=== PATIENT | female | born 1995 | race Caucasian/White ===

== ENCOUNTER 2021-12-04 11:00 | Emergency (ER) | payer OTHER, MEDICAID, SELFPAY ==
[2021-12-04 11:12] VITALS: BP 116/70; PULSE 100; RESP 12; TEMP 36.9; O2SAT 100
[2021-12-04 11:16] VITALS: BP 116/70; PULSE 100; RESP 12; TEMP 36.9; O2SAT 100
--- NOTE | 2021-12-04 11:24 | ED.URI ---
HPI - URI/Sore Throat General Chief Complaint: Upper Respiratory Infection Stated Complaint: fatigue,cough,runny nose,fever Time Seen by Provider: 12/04/21 11:15 Source: patient Mode of arrival: ambulatory Limitations: no limitations History of Present Illness HPI Narrative: Patient presents today complaining of 5-day history of productive cough with chest tightness fatigue, rhinorrhea, fever up to 100.2, and decreased appetite. Denies shortness of breath or wheezing. During this time she has done 2 home COVID-19 test that were both negative. She has been taking ibuprofen and cough drops with mild relief. She has history of asthma, but has not used an inhaler in a couple of years and does not have one at home. Related Data Home Medications Medication Instructions Recorded Confirmed June tab-cap PO DAILY 12/04/21 12/04/21 duloxetine 20 mg capsule,delayed 20 mg PO BID 12/04/21 12/04/21 release (Cymbalta) Allergies Allergy/AdvReac Type Severity Reaction Status Date / Time No Known Allergies Allergy Unverified 12/04/21 11:12 Review of Systems Review of Systems: CONSTITUTIONAL: Denies body aches, chills, or sweats.+ Fever, fatigue EYES: Denies visual changes, redness, or discharge. ENT: Denies congestion, sore throat, or otalgia.+ Rhinorrhea CARDIOVASCULAR: Denies chest pain, palpitations, or edema. RESPIRATORY: Denies dyspnea.+ Cough GASTROINTESTINAL: Denies abdominal pain, nausea, vomiting, or diarrhea.+ Decreased appetite GENITOURINARY: Denies dysuria or hematuria. SKIN: Denies rash, itching, or wounds. MUSCULOSKELETAL: Denies back pain, joint pain, or myalgia. NEUROLOGIC: Denies headache, numbness, tingling, or weakness. PSYCH: Denies depression or anxiety. [facility] Past Medical History Medical History (Updated 12/04/21 @ 11:30 by Juany Wakefield, FERMENTER HELPER, ) Asthma Comments At time of signature, I have reviewed and agree with nursing past medical, surgical, social and family history unless otherwise noted. Please see nursing chart for further information. There is no relevant family history pertinent to the presenting complaint Exam Narrative: GENERAL: Mildly ill-appearing, well-nourished, and in no acute distress. HEAD: Normocephalic, atraumatic. EYES: EOMI. No redness or drainage. Conjunctivae normal. ENT: Mucous membranes pink and moist. Nares mildly congested. No rhinorrhea. TMs normal bilaterally. Throat normal. Uvula midline. NECK: Normal AROM. Supple. No lymphadenopathy. CHEST: No respiratory distress. Clear to auscultation. HEART: Regular rate and rhythm. No murmur appreciated. Normal peripheral pulses. EXTREMITIES: Normal range of motion. No edema. SKIN: Warm, dry, no rash. Capillary refill normal. Normal skin turgor. NEURO: No focal deficits. Alert and oriented x3. Gait steady. PSYCH: Normal affect. No signs of depression or anxiety. Course Course Level of Care: Express Care Visit Vital Signs Vital signs: Vital Signs Temperature 98.5 F 12/04/21 11:12 Pulse Rate 100 12/04/21 11:12 Respiratory Rate 12 12/04/21 11:12 Blood Pressure 116/70 12/04/21 11:12 Pulse Oximetry 100 12/04/21 11:12 Oxygen Delivery Room Air 12/04/21 11:12 Temperature 98.5 F 12/04/21 11:16 Pulse Rate 100 12/04/21 11:16 Respiratory Rate 12 12/04/21 11:16 Blood Pressure 116/70 12/04/21 11:16 Pulse Oximetry 100 12/04/21 11:16 Oxygen Delivery Room Air 12/04/21 11:16 Reviewed MDM - URI/Sore Throat Differential Diagnosis Differential diagnosis: Likely upper respiratory infection, sinusitis, viral infection and bronchitis Critical Care Time Critical Care Time Critical Care Time: No Discharge Plan Discharge Clinical Impression: Bronchitis Upper respiratory infection Qualifiers: URI type: unspecified URI Qualified Code(s): J06.9 - Acute upper respiratory infection, unspecified Patient Disposition: Home, Self-Care Condition: Stable Instruction
== END 2021-12-04 11:35 | disposition home or self-care (01) ==
PROVIDERS: Emergency Provider Nurse Practitioner
DX: J40 Bronchitis, not specified as acute or chronic (principal); J06.9 Acute upper respiratory infection, unspecified; J45.909 Unspecified asthma, uncomplicated

== ENCOUNTER 2022-09-13 10:50 | Emergency (ER) | payer OTHER, SELFPAY ==
[2022-09-13 11:10] VITALS: BP 110/83; PULSE 108; RESP 16; TEMP 36.5; O2SAT 98
--- NOTE | 2022-09-13 11:15 | ED.URI ---
HPI - URI/Sore Throat General Chief Complaint: Upper Respiratory Infection Stated Complaint: swollen lymph nodes,congestion,headache,fatigue Time Seen by Provider: 09/13/22 11:15 Source: patient and RN notes reviewed Mode of arrival: ambulatory Limitations: no limitations History of Present Illness HPI Narrative: 27-year-old female presents for complaint of fatigue, sinus pressure congestion, drainage, cough, and occasional wheezing for almost 1 week. Endorses history of asthma and has been of an albuterol inhaler for some time, stating she does not have primary care provider. Endorses cough is productive of green/brown sputum. She denies nausea, vomiting, diarrhea, fevers or chills. She denies known sick contacts. She is taking Mucinex and Sudafed for symptoms. Took negative COVID test home yesterday. MD elicited complaint: cough Related Data Home Medications Medication Instructions Recorded Confirmed duloxetine 20 mg capsule,delayed 20 mg PO BID 12/04/21 09/13/22 release (Cymbalta) norethindrone 1 mg-ethinyl 1 tablet PO DAILY 09/13/22 09/13/22 estradiol 20 mcg (21)-iron 75 mg (7) tablet (06/01 (28)) Allergies Allergy/AdvReac Type Severity Reaction Status Date / Time No Known Allergies Allergy Verified 09/13/22 11:08 Review of Systems Review of Systems: CONSTITUTIONAL: Endorses malaise, denies chills, sweats, fever EYES: Denies visual changes, redness, or discharge ENT: Reports rhinorrhea, congestion, denies sinus pain, otalgia, sore throat CARDIOVASCULAR: Denies chest pain, palpitations, edema RESPIRATORY: Reports cough, post nasal drainage. Denies dyspnea GASTROINTESTINAL: Denies abdominal pain, nausea, vomiting, diarrhea SKIN: Denies rash or itching MUSCULOSKELETAL: denies myalgia NEUROLOGIC: Denies headache PMFSH Past Medical History Medical History Asthma Exam Narrative: GENERAL: mildly Ill-appearing, nontoxic EYES: PERRLA, conjunctivae clear ENT: Mucous membranes moist. TMs pearly sutton with dull light reflex bilaterally; no tragal tenderness. Oropharynx without lesions or exudate, no drooling, no hoarseness, no trismus, uvula midline. CHEST: Clear to auscultation, breath sounds equal. No wheezing, rhonchi, rales, or stridor. No respiratory distress, speaks in full sentences. HEART: Regular rate and rhythm. No murmur heard. SKIN: Warm, dry, no rash. NEURO: Alert and oriented x3. PSYCH: Normal mood and affect Course Course Emergency Course: Patient is aware of diagnosis, understands and agrees to treatment plan. Anticipatory guidance given. Patient agrees to follow-up as directed and is aware of reasons to seek care at the emergency department. Portions of this record may have been created with voice recognition software Level of Care: Express Care Visit Vital Signs Vital signs: Vital Signs Temperature 97.7 F 09/13/22 11:10 Pulse Rate 108 H 09/13/22 11:10 Respiratory Rate 16 09/13/22 11:10 Blood Pressure 110/83 09/13/22 11:10 Pulse Oximetry 98 09/13/22 11:10 Temperature 97.7 F 09/13/22 11:10 Pulse Rate 108 H 09/13/22 11:10 Respiratory Rate 16 09/13/22 11:10 Blood Pressure 110/83 09/13/22 11:10 Pulse Oximetry 98 09/13/22 11:10 reviewed MDM - URI/Sore Throat MDM Narrative Medical decision making narrative: Discussed physical exam findings. Advised supportive measures and signs/symptoms to go to the ER. Pt is appropriate for outpt treatment and f/u. Differential Diagnosis Differential diagnosis: Likely upper respiratory infection, sinusitis and viral infection Discharge Plan Discharge Clinical Impression: Upper respiratory infection Patient Disposition: Home, Self-Care Condition: Stable Instructions: Upper Respiratory Infection (ED) Additional Instructions: Recommend Flonase spray and Zyrtec (or Claritin/Rosmery) over the counter Cough syrup m
== END 2022-09-13 11:26 | disposition home or self-care (01) ==
PROVIDERS: Emergency Provider Nurse Practitioner Family
DX: J06.9 Acute upper respiratory infection, unspecified (principal); J45.909 Unspecified asthma, uncomplicated
CPT/HCPCS: 99213; G0463

== ENCOUNTER 2022-12-19 10:42 | Observation (INO) | payer OTHER, SELFPAY ==
[2022-12-19] VITALS (17 sets, daily range): BP systolic 96–130; BP diastolic 65–84; PULSE 82–105; RESP 12–26; TEMP 36.6–36.8; O2SAT 96–100; BMI 20.4
--- NOTE | 2022-12-19 10:55 | ECG_ITS ---
Measurements Intervals [place] Rate: 87 P: 71 WI: 140 QRS: 68 QRSD: 94 T: 50 QT: 345 QTc: 416 Interpretive Statements SINUS RHYTHM WITH SINUS ARRHYTHMIA LOW QRS VOLTAGE IN PRECORDIAL LEADS [QRS DEFLECTION < 1.0 mV IN CHEST LEADS] NONSPECIFIC T-WAVE ABNORMALITY ABNORMAL ECG NO PREVIOUS ECG AVAILABLE FOR COMPARISON Electronically Signed On 12-19-2022 11:33:57 CDT by Christopher Cunha M.D.
--- NOTE | 2022-12-19 11:00 | PC.NURSE ---
lisbeth at poison control contacted. states cymbalta has 2-3 hour absorption rate. peak effect 6-10 hours. toxic dose 1,000 mg. pt ingested 450 mg. symptoms to watch for are tachycardia, tremors, lethargy, dry mouth, nausea, abd cramping and seizures. risk for seizures increased for this pt due to the potential for co ingestion of wellbutrin and pts history of unmedicated epilepsy
[2022-12-19 11:05] LABS: Basophils Percent Auto 0.6 % (0.2-1.2); Eosinophils Absolute Auto 0.1 K/mm3 (0-0.3); Eosinophils Percent Auto 1.7 % (0-4.4); Hematocrit 45.7 % (37.0-47.0); Hemoglobin 15.6 g/dL (12.0-15.0); Immature Granulocyte Absolute 0.02 K/mm3 (0.00-0.031); Immature Granulocyte Percent A 0.3 % (0-0.5); Lymphocytes Absolute Auto 1.95 K/mm3 (0.9-3.2); Lymphocytes Percent Auto 29.6 % (18.3-44.2); Mean Corpuscular HGB Conc 34.1 g/dl (32-36); Mean Corpuscular Hemoglobin 32.3 pg (26-34); Mean Corpuscular Volume 94.6 fl (80-100); Mean Platelet Volume 9.7 fl (7.4-10.4); Monocytes Absolute Auto 0.3 K/mm3 (0.1-0.6); Neutrophils Absolute Auto 4.1 K/mm3 (1.3-6.7); Neutrophils Percent Auto 62.8 % (45.5-73.1); Platelet Count Result 259 k/mm3 (150-375); Red Blood Count 4.83 M/mm3 (4.2-5.4); Red Cell Distribution Width 12.6 % (11.5-14.5); White Blood Count 6.6 K/mm3 (4.5-10.0)
[2022-12-19 11:15] LABS: Alanine Aminotransferase 21 U/L (6-35); Albumin Level 4.5 g/dL (3.5-5.1); Alkaline Phosphatase 44 U/L (38-126); Anion Gap 9 mmol/L (8-16); Aspartate Amino Transferase 24 U/L (14-36); Bilirubin,Total 0.6 mg/dL (0.2-1.3); Blood Urea Nitrogen 11 mg/dL (7-17); Carbon Dioxide 25 mmol/L (22-30); Chloride 104 mmol/L (98-107); Estimated CRCL calculation 73 ml/min; Estimated Glomerular Filt Rate > 60; Glucose 88 mg/dL (65-110); Sodium 138 mmol/L (137-145)
[2022-12-19 11:20] LABS: Acetaminophen < 10 ug/mL (10-30); Ethanol < 10 mg/dL (<10); Salicylate < 1.0 mg/dL (2-20)
[2022-12-19 11:25] LABS: Appearance Urine Clear (Clear); Bilirubin Urine Negative (Negative); Blood Urine Negative (Negative); Color Urine Yellow (Yellow); Glucose Urine UA Negative (Negative); Ketones Urine Trace mg/dL (Negative); Leukocyte Esterase Ur Negative LEU/UL (Negative); Nitrate Urine Negative (Negative); Protein Urine Negative (Negative); Specific Grav Ur 1.013 (1.001-1.035)
[2022-12-19 11:29] LABS: Add Urine Microscopic? NO
[2022-12-19] MEDS: SODIUM CHLORIDE 0.9% IV 1,000 ML 999 ML IV CONT (11:35)
[2022-12-19] MEDS: levETIRAcetam 1000MG/NACL100ML 1,000 MG/100 ML BAG 400 MG IVPB (11:36)
[2022-12-19 11:39] LABS: Amphetamine Screen Urine Negative (Negative); Barbiturate Screen Urine Negative (Negative); Benzodiazepines Screen Urine Negative (Negative); Cannabinoid Screen Urine Positive (Negative); Cocaine Screen Urine Negative (Negative); Methadone Screen Urine Negative (Negative); Opiate Screen Urine Negative (Negative); Phencyclidine Screen Urine Negative (Negative)
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
[2022-12-19] MEDS: ONDANSETRON INJ 4 MG/2 ML VIAL IV PUSH ×3 (12:33→22:49)
--- NOTE | 2022-12-19 13:27 | PC.NURSE ---
Patient placed in green scrubs, belongings sent with family. Patient hooked up to monitoring d/t medical necessity.
--- NOTE | 2022-12-19 14:20 | ADMIMU ---
This patient, Senia Hurley, was admitted to medical-telemetry status, and placed in Intensive Care Unit-4. Patient/family oriented to hospital policies and general routines including ID bracelet, bed and alarms, visiting hours, pain management, procedures, bathroom and other care routines, personal items, smoking policy, room service/diet, and visiting hours. Valuables list has been completed. Information on how to activate the Rapid Response Team has been discussed. Patient/Family are encouraged to report perceived risks to care and to ask questions if they do not understand what they are told or what they should do.
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
[2022-12-20] VITALS: BP 90/59; PULSE 80; RESP 16; TEMP 37; O2SAT 97
[2022-12-20 04:00] VITALS: BP 97/74; PULSE 72; RESP 16; TEMP 36.8; O2SAT 97
[2022-12-20 04:35] LABS: Hematocrit 40.2 % (37.0-47.0); Hemoglobin 13.7 g/dL (12.0-15.0); Mean Corpuscular HGB Conc 34.1 g/dl (32-36); Mean Corpuscular Hemoglobin 32.3 pg (26-34); Mean Corpuscular Volume 94.8 fl (80-100); Mean Platelet Volume 9.3 fl (7.4-10.4); Platelet Count Result 244 k/mm3 (150-375); Red Blood Count 4.24 M/mm3 (4.2-5.4); Red Cell Distribution Width 12.4 % (11.5-14.5); White Blood Count 5.9 K/mm3 (4.5-10.0)
[2022-12-20 04:47] LABS: Alanine Aminotransferase 19 U/L (6-35); Albumin Level 3.7 g/dL (3.5-5.1); Alkaline Phosphatase 39 U/L (38-126); Anion Gap 7 mmol/L (8-16); Aspartate Amino Transferase 20 U/L (14-36); Bilirubin,Total 0.3 mg/dL (0.2-1.3); Blood Urea Nitrogen 7 mg/dL (7-17); Calcium 8.4 mg/dL (8.4-10.2); Carbon Dioxide 24 mmol/L (22-30); Chloride 105 mmol/L (98-107); Estimated CRCL calculation 95 ml/min; Estimated Glomerular Filt Rate > 60; Glucose 117 mg/dL (65-110); Magnesium 1.9 mg/dL (1.6-2.3); Sodium 136 mmol/L (137-145)
[2022-12-20 08:00] VITALS: BP 102/74; PULSE 102; RESP 16; TEMP 36.6; O2SAT 97
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
[2022-12-20 12:00] VITALS: PULSE 95
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
--- NOTE | 2022-12-20 13:08 | PC.NURSE ---
iv dc'd prior to discharge
== END 2022-12-20 13:00 | disposition home or self-care (01) ==
LOC: ANHED 11:28 → ANHICU 15:27
PROVIDERS: Physician Assistant; Admitting Provider Family Medicine; Emergency Provider Physician Assistant; PCP Internal Medicine; Visit Provider Student in an Organized Health Care Education/Training Program
DX: T43.212A Poisoning by selective serotonin and norepinephrine reuptake inhibitors, intentional self-harm, initial encounter (principal); F32.A Depression, unspecified; F41.9 Anxiety disorder, unspecified; G40.909 Epilepsy, unspecified, not intractable, without status epilepticus; Z87.891 Personal history of nicotine dependence; F12.90 Cannabis use, unspecified, uncomplicated; Z79.51 Long term (current) use of inhaled steroids
CPT/HCPCS: 36415; 80053; 80307; 81003; 81025; 83735; 84443; 85025; 85027; 93005; 96361; 96365; 96375; 96376; 99285; G0378; J1953; J2405; J7030

== ENCOUNTER 2023-09-28 12:53 | Emergency (ER) | payer BC, SELFPAY ==
--- NOTE | 2023-09-28 13:02 | ED.URI ---
HPI - URI/Sore Throat General Chief Complaint: Headache Stated Complaint: head/ear pressure,lumps in throat,dizzines Time Seen by Provider: 09/28/23 13:15 Source: patient Mode of arrival: ambulatory Limitations: no limitations History of Present Illness HPI Narrative: Senia is a 28-year-old female patient presenting to the clinic today with complaints of headache, ear pressure, lumps in the back of her throat, dizziness, weight loss, body aches, and occipital lymphadenopathy on the left side. She reports the symptoms have been going on for over a month. Was seen at the [facility] urgent care and sent to [facility] and she had blood work, head scan, and chest x-ray performed. Also had to, COVID, strep, and mono testing completed at the urgent care. States that all the testing was normal at that time however her symptoms are worsening. States she has lost 7 lb within the last week. She has not been able to eat. Related Data Home Medications Medication Instructions Recorded Confirmed norethindrone 1 mg-ethinyl 1 tablet PO DAILY 09/13/22 12/19/22 estradiol 20 mcg (21)-iron 75 mg (7) tablet ( FE 06/01 (28)) bupropion HCl 150 mg 24 hr tablet, 150 mg PO DAILY 12/19/22 12/19/22 extended release duloxetine 30 mg capsule,delayed 30 mg PO BID 12/19/22 12/19/22 release spironolactone 50 mg tablet 50 mg PO HS 12/19/22 12/19/22 Allergies Allergy/AdvReac Type Severity Reaction Status Date / Time No Known Allergies Allergy Verified 09/13/22 11:08 Review of Systems Review of Systems: Pertinent positives per HPI. Patient denies any fever, rash, visual changes, cough, runny nose, shortness of breath, chest pain, palpitations, nausea, vomiting, diarrhea, constipation, abdominal pain, or any urinary issues. [facility] Past Medical History Medical History Anxiety Asthma Depression Epilepsy Surgical History Surgical History History of mandibular surgery (2019) Social History Social History Social History: Surrogate medical decision maker: Karuna Hurley, mother. Code status: Full code. Smoking status: Former smoker Additional smoking assessment comments: vaped for 5 months Alcohol intake: current Drinks per week: 1 Substance use type: marijuana Other substance usage details: gummies before bed Last use: 12/18/22 Lack of Transportation: No Lack of Food: Never True Current Housing: I Have Housing Concerned About Future Housing: No Difficulty Paying Gas/Electric Bills: No Difficulty Paying for Meds: No Currently Unemployed: No Education: Master's Degree or Higher Difficulty w/ Childcare or Family Care: No Additional living arrangements comments: The patient lives with her Kvng Jacobs, in [place]. 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 Spiritual care concerns: No Comments At the time of my signature, I reviewed and agree with the nursing past medical, surgical, social, and family history. There is no relevant family history pertinent to the patient complaint. Exam Narrative: General: Well-developed, well nourished, anxious and tearful Head: Normocephalic, atraumatic Eyes: Pupils equally round and reactive to light bilaterally, EOM intact, sclera and conjunctive clear, no discharge, lids normal Ears: TMs intact and clear, ear canals clear, no drainage, grossly hearing normal. Nose: Nares patent, no discharge, no inflammation, no sinus tenderness. Mouth: Oropharynx without lesions or masses, good dentition, MMM. Neck: Supple, trachea midline, no enlargement of anterior or posterior cervical nodes, mild swelling over the left occipital lymph node, no thyroid masses or goiter palpable. Cardio: Regular rate and rhythm, s1 and s2 normal, no murmur appreciated. Resp: Clear
[2023-09-28 13:24] VITALS: BP 121/84; PULSE 106; RESP 18; TEMP 36.6; O2SAT 100
== END 2023-09-28 13:36 | disposition short-term general hospital (02) ==
PROVIDERS: Emergency Provider Nurse Practitioner Family; PCP Internal Medicine
DX: J02.9 Acute pharyngitis, unspecified (principal); R63.4 Abnormal weight loss; R59.1 Generalized enlarged lymph nodes; R42 Dizziness and giddiness; J45.909 Unspecified asthma, uncomplicated; F41.9 Anxiety disorder, unspecified; F32.A Depression, unspecified
CPT/HCPCS: 99212; G0463

== ENCOUNTER 2023-10-11 08:51 | Outpatient (CLI) | payer BC, SELFPAY ==
--- NOTE | ~2023-10-11 | US_ITS ---
US breast BI complete INDICATION: Breast pain TECHNIQUE: Dedicated bilateral complete breast ultrasound including all 4 quadrants in the subareolar locations COMPARISON: No prior studies for comparison. FINDINGS: The breasts are composed of normal heterogeneous echotexture without focal solid or cystic mass. IMPRESSION: 1: Normal bilateral breast ultrasound. BI-RADS CATEGORY 1 - NEGATIVE Reviewed, dictated and finalized at location B.
== END 2023-10-11 08:52 ==
LOC: MICIMG 08:52
PROVIDERS: PCP Internal Medicine; Visit Provider Nurse Practitioner
DX: N64.4 Mastodynia (principal)
CPT/HCPCS: 76641

== ENCOUNTER 2024-04-22 17:53 | Emergency (ER) | payer BC, SELFPAY ==
--- NOTE | ~2024-04-22 | XR_ITS ---
EXAMINATION: XR chest 2V DATE: 04/22/2024 18:17 INDICATION: Chest pain. TECHNIQUE: Frontal and lateral views of the chest were obtained. COMPARISON: None. FINDINGS: There is no pneumonia, pleural effusion, or pneumothorax. The heart size is normal. Pectus excavatum is noted. IMPRESSION: 1. No acute cardiopulmonary disease. Reviewed, dictated and finalized at location A. [employer]IST
--- NOTE | 2024-04-22 17:54 | ECG_ITS ---
Test Date: 2024-04-22 18:04:42 Measurements Intervals Roann Rate: 92 P: 66 TX: 131 QRS: 64 QRSD: 93 T: 56 QT: 342 QTc: 423 Interpretive Statements SINUS RHYTHM LOW QRS VOLTAGE IN PRECORDIAL LEADS [QRS DEFLECTION < 1.0 mV IN CHEST LEADS] INCOMPLETE RIGHT BUNDLE BRANCH BLOCK [90+ ms QRS DURATION, TERMINAL R IN V1/V2, 40+ ms S IN I/aVL/V4/V5/V6] No previous ECG available for comparison Electronically Signed On 04-22-2024 19:05:18 ICT PROJECT MANAGER by Keysha Mc
[2024-04-22 17:58] VITALS: BP 133/81; PULSE 94; RESP 16; TEMP 36.6; O2SAT 100
[2024-04-22 20:42] LABS: Basophils Absolute Auto 0.1 K/mm3 (0.0-0.1); Basophils Percent Auto 0.9 % (0.2-1.2); Eosinophils Absolute Auto 0.2 K/mm3 (0-0.3); Eosinophils Percent Auto 2.4 % (0-4.4); Hematocrit 38.8 % (37.0-47.0); Hemoglobin 13.6 g/dL (12.0-15.0); Immature Granulocyte Absolute 0.02 K/mm3 (0.00-0.031); Immature Granulocyte Percent A 0.3 % (0-0.5); Lymphocytes Absolute Auto 2.85 K/mm3 (0.9-3.2); Lymphocytes Percent Auto 36.4 % (18.3-44.2); Mean Corpuscular HGB Conc 35.1 g/dl (32-36); Mean Corpuscular Hemoglobin 31.9 pg (26-34); Mean Corpuscular Volume 90.9 fl (80-100); Mean Platelet Volume 9.8 fl (7.4-10.4); Monocytes Absolute Auto 0.5 K/mm3 (0.1-0.6); Neutrophils Absolute Auto 4.2 K/mm3 (1.3-6.7); Platelet Count Result 251 k/mm3 (150-375); Red Blood Count 4.27 M/mm3 (4.2-5.4); Red Cell Distribution Width 12.2 % (11.5-14.5); White Blood Count 7.8 K/mm3 (4.5-10.0)
[2024-04-22 20:52] LABS: Alanine Aminotransferase 15 U/L (6-35); Albumin Level 3.9 g/dL (3.5-5.1); Alkaline Phosphatase 37 U/L (38-126); Anion Gap 6 mmol/L (4-12); Aspartate Amino Transferase 18 U/L (14-36); Bilirubin,Total 0.4 mg/dL (0.2-1.3); Blood Urea Nitrogen 11 mg/dL (7-17); Carbon Dioxide 26 mmol/L (22-30); Chloride 104 mmol/L (98-107); Estimated CRCL calculation 72 ml/min; Estimated Glomerular Filt Rate > 60; Glucose 106 mg/dL (65-110); Lipase 114 U/L (23-300); Potassium 3.7 mmol/L (3.4-5.0); Sodium 136 mmol/L (137-145)
[2024-04-22 20:54] LABS: Prothrombin Time 13.8 Seconds (11.1-14.7)
[2024-04-22 20:55] LABS: Partial Thromboplastin Time 24.2 Seconds (22.3-36.8)
[2024-04-22] MEDS: ASPIRIN 81 MG CHEWABLE TABLET 324 MG PO (20:59)
[2024-04-22 21:03] LABS: Troponin I < 0.012 ng/mL (0.000-0.034)
[2024-04-22 21:17] LABS: Influenza A QL RT-PCR Negative (Negative); Influenza B QL RT-PCR Negative (Negative); RSV RNA, RT-PCR Negative (Negative); SARS-CoV-2 RNA PCR Negative (Negative)
[2024-04-22 21:44] LABS: Troponin I < 0.012 ng/mL (0.000-0.034)
--- NOTE | 2024-04-22 21:45 | ED_ITS ---
HPI - Chest Pain General Chief Complaint: Chest Pain Stated Complaint: chest pain Time Seen by Provider: 04/22/24 20:27 History of Present Illness HPI narrative: Patient is a 28-year-old female who presents to the emergency department this evening with multiple complaints. Patient states that for the past few days that she has been having intermittent and sharp chest pain, lightheadedness, chills/night sweats, and feeling generally unwell. Patient admits to history of anxiety and states that she has been very anxious about her health lately specially since 2 members of her family were diagnosed with cancer. Patient states that she also has a lot of autoimmune disease in her family including inflammatory bowel disease and thyroid disorder. Patient denies any active chest pain or shortness of breath, denies any nausea vomiting or abdominal pain, denies any diarrhea or constipation, melena, or hematochezia, denies any reported fevers at home. Patient also denies any headaches, dizziness, vision changes, focal weakness, numbness and tingling. No additional symptoms or concerns at this time. Related Data Home Medications ?Medication ?Instructions ?Recorded ?Confirmed ?Last Taken ?Type norethindrone 1 mg-ethinyl 1 tablet PO DAILY 09/13/22 12/19/22 12/19/22 08:00 History estradiol 20 mcg (21)-iron 75 mg (7) tablet (06/01 ()) bupropion HCl 150 mg 24 hr tablet, 150 mg PO DAILY 12/19/22 12/19/22 12/19/22 08:00 History extended release duloxetine 30 mg capsule,delayed 30 mg PO BID 12/19/22 12/19/22 12/19/22 09:30 History release spironolactone 50 mg tablet 50 mg PO HS 12/19/22 12/19/22 12/18/22 21:00 History Allergies Allergy/AdvReac Type Severity Reaction Status Date / Time No Known Allergies Allergy Verified 09/13/22 11:08 Review of Systems 2 Review of Systems: All systems are reviewed and are negative unless stated otherwise in the HPI. [facility] Past Medical History Medical History Epilepsy Anxiety Depression Asthma Surgical History Surgical History History of mandibular surgery (2019) Social History Social History Social History: Surrogate medical decision maker: Karuna Hurley, mother. Code status: Full code. Smoking status: Former smoker Additional smoking assessment comments: vaped for 5 months Alcohol intake: current Drinks per week: 1 Substance use type: marijuana Other substance usage details: gummies before bed Last use: 12/18/22 Lack of Transportation: No Lack of Food: Never True Current Housing: I Have Housing Concerned About Future Housing: No Difficulty Paying Gas/Electric Bills: No Difficulty Paying for Meds: No Currently Unemployed: No Education: Master's Degree or Higher Difficulty w/ Childcare or Family Care: No Additional living arrangements comments: The patient lives with her Kvng Jacobs, in [place]. 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 Spiritual care concerns: No Exam 2 Narrative: General: Alert, awake, afebrile, in no acute distress, anxious. HEENT: PERRL, no rhinorrhea, no post nasal drip, oropharynx clear. Neck: Trachea midline, no JVD, no lymphadenopathy. Cardiovascular: Regular rate and rhythm, no murmurs, rubs or gallops, no peripheral edema. Respiratory: Clear to auscultation bilaterally, no tachypnea, no wheezing, no rhonchi, no rubs, no respiratory distress. Abdomen: Soft, nontender, nondistended, no rebound, no guarding, no peritoneal signs. Musculoskeletal: No joint swelling or deformity, normal muscle tone. Skin: No rashes or petechia, no signs of infection. Psychiatric: Alert and oriented, normal behavior and judgment for situation. Neurological: Alert and oriented to person, place, and time. Follows all commands. No focal deficits, speech is clear and fluent. Course Vital Signs Vital signs: Vital Signs Temperature 98 F 04/22/24 17:58 Pulse Rate 94 04/22/24 17:58 Respiratory Rate 16 04/22/24 17:58 Blood Pressure 133/81 04/22/24 17:58 Pulse Oximetry 100 04/22/24 17:58 Temperature 98 F 04/22/24 17:58 Pulse Rate 94 04/22/24 17:58 Respiratory Rate 16 04/22/24 17:58 Blood Pressure 133/81 04/22/24 17:58 Pulse Oximetry 100 04/22/24 17:58 Oxygen Delivery Room Air 04/22/24 20:28 MDM - Chest Pain MDM Narrative Medical decision making narrative: The patient was evaluated by myself in the emergency department. History is obtained from patient who is an independent historian and physical exam was performed. External medical records were reviewed at this time. IV was established and pertinent tests were ordered. EKG was obtained which revealed sinus rhythm at a rate of 92 beats per minute. No ST changes, T wave inversions or evidence of acute ischemia. EKG was independently interpreted by me and is currently pending official cardiology read. Laboratory results obtained revealing no acute process. Two sets of troponins were obtained and both noted to be negative. Viral swabs negative. Imaging studies obtained included CXR which was independently interpreted by me revealing no acute cardiopulmonary process, which is pending final radiology interpretation. Differential diagnosis considerations include acute stress reaction, anxiety, dehydration, electrolyte derangements, acute viral syndrome, infectious process such as pneumonia. Comorbidities impacting this visit include history of anxiety. I have evaluated and discussed social determinants of health with the patient that could potentially impact subsequent diagnosis and treatment plans. On repeat assessment of the patient, reevaluation revealed that the patient is doing well and is in no acute distress. Patient symptoms have improved since she arrived to our emergency department. Repeat vital signs were all reviewed and noted to be stable. Differential diagnosis and treatment plan were discussed with the patient at bedside. Patient agrees with discussion and after shared medical decision making agrees with discharge. All questions were answered to the patient's satisfaction. Patient will follow up with her PCP in 3-5 days. Patient was provided with strict return precautions and instructed to return to the emergency department if any new or worsening symptoms develop. The patient was discharged in stable condition. Lab Data 04/22/24 20:35 04/22/24 20:35 Labs: Lab Results 04/22/24 04/22/24 Range/Units 20:35 21:16 WBC 7.8 (4.5-10.0) K/mm3 RBC 4.27 (4.2-5.4) M/mm3 Hgb 13.6 (12.0-15.0) g/dL Hct 38.8 (37.0-47.0) % MCV 90.9 (80-100) fl MCH 31.9 (26-34) pg MCHC 35.1 (32-36) g/dl RDW 12.2 (11.5-14.5) % Plt Count 251 (150-375) k/mm3 MPV 9.8 (7.4-10.4) fl Immature Gran % (Auto) 0.3 (0-0.5) % Neut % (Auto) 54.0 (45.5-73.1) % Lymph % (Auto) 36.4 (18.3-44.2) % [place] % (Auto) 6.0 (2.6-8.5) % Eos % (Auto) 2.4 (0-4.4) % Baso % (Auto) 0.9 (0.2-1.2) % Lymph # (Auto) 2.85 (0.9-3.2) K/mm3 [place] # (Auto) 0.5 (0.1-0.6) K/mm3 Eos # (Auto) 0.2 (0-0.3) K/mm3 Baso # (Auto) 0.1 (0.0-0.1) K/mm3 Abs Immat Gran (auto) 0.02 (0.00-0.031) K/mm3 Absolute Neuts (auto) 4.2 (1.3-6.7) K/mm3 Absolute Nucleated RBC 0.000 (0.0-0.012) K/mm3 Nucleated RBC % 0.0 (0.0-0.2) % PT 13.8 (11.1-14.7) Seconds INR 1.0 APTT 24.2 (22.3-36.8) Seconds Sodium 136 L (137-145) mmol/L Potassium 3.7 (3.4-5.0) mmol/L Chloride 104 (98-107) mmol/L Carbon Dioxide 26 (22-30) mmol/L Anion Gap 6 (4-12) mmol/L BUN 11 (7-17) mg/dL Creatinine 0.80 (0.7-1.0) mg/dL Estim Creat Clear Calc 72 ml/min Estimated GFR > 60 (59 - ) Glucose 106 (65-110) mg/dL Calcium 9.0 (8.4-10.2) mg/dL Total Bilirubin 0.4 (0.2-1.3) mg/dL AST 18 (14-36) U/L ALT 15 (6-35) U/L Alkaline Phosphatase 37 L (38-126) U/L Troponin I < 0.012 < 0.012 (0.000-0.034) ng/mL Total Protein 7.0 (6.3-8.2) g/dL Albumin 3.9 (3.5-5.1) g/dL Lipase 114 (23-300) U/L Influenza A (RT-PCR) Negative (Negative) Influenza B (RT-PCR) Negative (Negative) RSV (RT-PCR) Negative (Negative) SARS-CoV-2 RNA (RT-PCR) Negative (Negative) Discharge Plan Discharge Clinical Impression: Atypical chest pain, Anxiety about health Patient Disposition: Home, Self-Care Condition: Improved Instructions: Antibiotic Form, Chest Pain (ED) Additional Instructions: Please follow-up with your family doctor within the next 3-5 days. Return to the ED if any new or worsening symptoms develop. Patient Language: Kosovan Prescriptions: No Action (DME) [facility] MDI Spacer Spacer See Rx Instructions .ROUTE .MEDSUPPLY Qty: 1 0RF Rx Instructions: As directed norethindrone-e.estradiol-iron [ FE 06/01 (28)] 1 mg-20 mcg (21)/75 mg (7) tablet 1 tablet PO DAILY albuterol sulfate 90 mcg/actuation HFA aerosol inhaler 2 inh inhalation QID PRN (Reason: shortness of breath or wheezing) Qty: 8.5 0RF spironolactone 50 mg Tablet 50 mg PO HS Rx Instructions: for hormonal acne bupropion HCl 150 mg tablet extended release 24 hr 150 mg PO DAILY duloxetine 30 mg capsule,delayed release(DR/EC) 30 mg PO BID Follow-up/Referrals: Jacqueline,MD Cedrick [Primary Care Provider] - 04/27/24 Time of Disposition: 21:47
[2024-04-22 22:22] VITALS: BP 120/82; PULSE 80; RESP 16; O2SAT 100
== END 2024-04-22 22:24 | disposition home or self-care (01) ==
PROVIDERS: Family Medicine; Emergency Provider Emergency Medicine; PCP Internal Medicine
DX: R07.89 Other chest pain (principal); F41.9 Anxiety disorder, unspecified; G40.909 Epilepsy, unspecified, not intractable, without status epilepticus; J45.909 Unspecified asthma, uncomplicated; F32.A Depression, unspecified; Z87.891 Personal history of nicotine dependence; I45.10 Unspecified right bundle-branch block
CPT/HCPCS: 36415; 71046; 80053; 83690; 84484; 85025; 85610; 85730; 87637; 93005; 99284; A9270